=== PATIENT | female | born 1980 | race Caucasian/White ===

== ENCOUNTER 2022-04-21 13:57 | Emergency (ER) | payer MEDICAID ==
[~2022-04-21] VITALS: Ht 165.1 cm; Wt 82.0 kg
[2022-04-21 13:58] VITALS: BP 145/86
[2022-04-21 15:50] LABS: BASOPHILS % 0.1 % (0.0-2.0); EOSINOPHILS % 0.2 % (0.0-5.0); HEMATOCRIT. 42.1 % (36.0-48.0); HEMOGLOBIN. 14.3 g/dL (12.0-16.0); LYMPHOCYTES % 11.2 % (20.0-50.0); MEAN CORPUSCULAR HEMOGLOBIN 31.1 pg (28.0-32.0); MEAN CORPUSCULAR VOLUME 91.8 fL (81.0-99.0); MEAN PLATELET VOLUME 9.2 fl (7.4-10.4); NEUTROPHILS % 84.5 % (40.0-76.0); PLATELET 315 x1000/uL (130-400); RED BLOOD CELL COUNT 4.59 mill/uL (4.2-5.4); RED CELL DISTRIBUTION WIDTH 13.6 % (11.6-14.6)
[2022-04-21 16:00] LABS: CHLORIDE 104 mEq/L (98-107)
[2022-04-21 16:18] LABS: HCG SCREEN NEGATIVE
[2022-04-21 18:35] LABS: CLARITY URINE CLEAR (CLEAR); COLOR URINE YELLOW (YELLOW); KETONES URINE 3+ (NEGATIVE); LEUKOCYTE ESTERASE URINE NEGATIVE (NEGATIVE); NITRITE URINE NEGATIVE (NEGATIVE); OCCULT BLOOD URINE TRACE (NEGATIVE); PH URINE 6.5 (4.5-8.0); PROTEIN URINE NEGATIVE (NEGATIVE); SPECIFIC GRAVITY URINE 1.017 (1.005-1.030)
[2022-04-21] MEDS ORDERED: METH-773 MT (20:22)
[2022-04-21] MEDS ORDERED: HYDR25SU37 RC (20:22)
[2022-04-21] MEDS ORDERED: IBUP-2029 MT (20:22)
== END 2022-04-21 20:32 | disposition home or self-care (01) ==
LOC: ER 13:57
DX: R07.2 Precordial pain (principal); R00.2 Palpitations; F43.0 Acute stress reaction; M54.40 Lumbago with sciatica, unspecified side; K64.4 Residual hemorrhoidal skin tags
CPT/HCPCS: 36415; 71045; 80053; 81003; 81025; 84484; 84703; 85025; 93005; 99285